=== PATIENT | female | born 1965 | race Caucasian/White ===

== ENCOUNTER 2017-06-25 08:58 | Emergency (ER) | payer OTHER ==
[~2017-06-25] VITALS: Ht 175.3 cm; Wt 74.4 kg
--- NOTE | ~2017-06-25 | EKG ---
[place] [address] [facility] [place] [address] ELECTROCARDIOGRAM REPORT Name: REUM PAT Room #: DEP [facility]#: [id number] Admission: 06/25/17 Attend Phys: Discharge: 06/25/17 Date of : 61 Report #: [id number] THIS REPORT FOR: //name// [facility] ED Test Date: 2017-06-25 Test Time: 09:04:41 Pat Name: ERUM PAT Department: Room: Gender: F System Dispatcher: Antonio WILHELM : 1965 Requested By: Laci Crawford Order Number: [id number] MD: Barak Ornelas Measurements Intervals [place] Rate: 108 P: 66 WA: 160 QRS: 50 QRSD: 127 T: 65 QT: 318 QTc: 426 Interpretive Statements Sinus tachycardia Probable left atrial enlargement IVCD, consider atypical RBBB Artifact in lead(s) II,III,aVR,aVL,aVF No previous ECG available for comparison Electronically Signed On 06-26-2017 9:07:13 CDT by Barak Ornelas [email or web address] <ELECTRONICALLY SIGNED> By: Barak Ornelas MD, [facility] 06/26/17906 3 3 Barak Ornelas MD, [facility] /EPI
[~2017-06-25 08:58] MED LIST: ABILIFY15 MG PO; ADDERALL 30 MG30 MG PO; AMOXICILLIN 50500 M1 PO; CIPRODEX OTIC7.5 ML OTIC; CORTISPORIN OTI10 ML OTIC; INDOMETHACIN 2525 MG PO; LAMICTAL XR200 MG PO; NORCO 5-325 TA1 EACH PO
[2017-06-25 09:38] LABS: BASOPHILS 0.6 % (0.0-2.0); EOSINOPHILS 1.1 % (0.0-3.0); HEMATOCRIT 38.2 % (37.0-47.0); HEMOGLOBIN 13.2 gm/dL (12.0-15.0); LYMPHOCYTES 18.5 % (24.0-44.0); MANUAL DIFF NO; MCHC 34.7 g/dL (28.0-37.0); MCV 95.2 fL (80.0-100.0); MONOCYTES 6.2 % (1.0-8.0); PLATELET COUNT 124 thou/uL (150-400); POLYS 73.6 % (36.0-66.0); RBC 4.01 mil/uL (4.20-5.00); RDW 12.5 % (10.5-14.5); WBC 11.5 thou/uL (4.0-11.0)
[2017-06-25 09:43] LABS: ANION GAP 9 mmol/L (7-16); BUN 17 mg/dL (7-18); CALCIUM 9.5 mg/dL (8.5-10.1); CHLORIDE 104 mmol/L (98-107); CO2 26 mmol/L (21-32); CREATININE 0.8 mg/dL (0.6-1.0); GLUCOSE 98 mg/dL (74-106); POTASSIUM 4.7 mmol/L (3.5-5.1); SODIUM 139 mmol/L (136-145)
[2017-06-25 09:56] LABS: NT-PRO BRAIN NAT PEPTIDE 39 pg/mL (<300); TROPONIN-I < 0.04 ng/mL (<0.04-0.07)
[2017-06-25] MEDS ORDERED: WELLBUTRIN SR150 MG PO (10:01)
[2017-06-25] MEDS ORDERED: NAPROSYN500 MG PO (10:08)
[2017-06-25 12:14] VITALS: BP 112/62
== END 2017-06-25 12:16 | disposition home or self-care (01) ==
LOC: ER 08:58
PROVIDERS: Nurse Practitioner
DX: M94.0 Chondrocostal junction syndrome [Tietze] (principal); F10.99 Alcohol use, unspecified with unspecified alcohol-induced disorder; Z88.8 Allergy status to other drugs, medicaments and biological substances

== ENCOUNTER 2018-12-04 21:26 | Emergency (ER) | payer OTHER ==
[~2018-12-04] VITALS: Ht 175.3 cm; Wt 86.2 kg
[~2018-12-04 21:26] MED LIST changes: +NAPROSYN500 MG PO; +WELLBUTRIN SR150 MG PO
[2018-12-04 22:05] VITALS: BP 105/54
[2018-12-04] MEDS ORDERED: BACTRIM DS TAB1 EACH PO (22:11)
[2018-12-04] MEDS ORDERED: NAPROSYN500 MG PO (22:30)
== END 2018-12-04 22:30 | disposition home or self-care (01) ==
LOC: ER 21:26
DX: L03.115 Cellulitis of right lower limb (principal)

== ENCOUNTER 2018-12-05 17:02 | Inpatient (IN) | payer OTHER ==
[~2018-12-05] VITALS: Ht 175.3 cm; Wt 86.2 kg
[~2018-12-05 17:02] MED LIST changes: +BACTRIM DS TAB1 EACH PO
[2018-12-05 17:04] VITALS: BP 121/60
[2018-12-05 17:43] LABS: ABSOLUTE NEUTROPHILS 9.4 thou/uL (1.4-8.2); BASOPHILS 0.8 % (0.0-2.0); EOSINOPHILS 1.7 % (0.0-3.0); HEMOGLOBIN 13.1 gm/dL (12.0-15.0); LYMPHOCYTES 19.6 % (24.0-44.0); MCHC 34.5 g/dL (28.0-37.0); MCV 92.8 fL (80.0-100.0); MONOCYTES 7.8 % (1.0-8.0); PLATELET COUNT 256 thou/uL (150-400); POLYS 70.1 % (36.0-66.0); RDW 12.7 % (10.5-14.5); WBC 13.4 thou/uL (4.0-11.0)
[2018-12-05 17:49] LABS: CALCIUM 9.2 mg/dL (8.5-10.1); CREATININE 1.1 mg/dL (0.6-1.0); POTASSIUM 3.9 mmol/L (3.5-5.1)
[2018-12-05 17:55] LABS: ALBUMIN 3.7 g/dL (3.4-5.0); TOTAL BILIRUBIN 0.4 mg/dL (<0.1-1.0); TOTAL PROTEIN 7.2 g/dL (6.4-8.2)
[2018-12-05 17:57] LABS: PROTIME 10.3 Seconds (9.3-11.4)
[2018-12-05 20:11] VITALS: BP 99/49
[2018-12-05 20:53] VITALS: BP 92/50
[2018-12-05 21:23] VITALS: BP 92/50
--- NOTE | 2018-12-06 05:01 | NUR ---
PT ARRIVED TO UNIT APPROX 2100 IN STABLE CONDITION, ABLE TO WALK FROM ED CART TO BED. ADMISSION AND ASSESSMENT COMPLETED, CONSENTS SIGNED. PT A&Ox4, BIPOLAR AND ADHD, FLIGHTY THOUGHT PROCESS BUT PLEASANT AND COOPERATIVE, HAD TO ASK QUESTIONS MULTIPLE TIMES BECAUSE SHE KEPT FALLING ASLEEP. TOOK WOUND PHOTO OF CELLULITIS ON RIGHT INNER THIGH, NOTED A HARD KNOT AT CENTER, NOTHING DRAINING. ON IV FLUIDS AND ABX. NO PAIN SINCE ON THE FLOOR. NO OTHER CONCERNS, WILL CONTINUE TO MONITOR.
[2018-12-06 05:14] VITALS: BP 102/47
[2018-12-06 05:41] LABS: HEMATOCRIT 38.9 % (37.0-47.0); HEMOGLOBIN 13.1 gm/dL (12.0-15.0); MCH 31.5 pg (26.0-34.0); MCHC 33.6 g/dL (28.0-37.0); MCV 93.6 fL (80.0-100.0); RBC 4.15 mil/uL (4.20-5.00); RDW 12.4 % (10.5-14.5); WBC 8.2 thou/uL (4.0-11.0)
[2018-12-06 05:55] LABS: CALCIUM 8.5 mg/dL (8.5-10.1); CREATININE 0.9 mg/dL (0.6-1.0); POTASSIUM 4.3 mmol/L (3.5-5.1)
[2018-12-06 10:53] VITALS: BP 98/60
--- NOTE | 2018-12-06 12:46 | NUR ---
ASSESSMENT-PT LIVES AT HOME WITH HER EX-. PT WALKS ON HER OWN AND DOES HER OWN ADLS. PT DRIVES. PT VOICES NO CONCERNS RELATED TO DC. EX- ABLE TO ASSIST AT HOME. FOLLOWING TO ASSIST WITH DC PLANNING.
[2018-12-06 16:00] VITALS: BP 119/75
--- NOTE | 2018-12-06 16:45 | NUR ---
WOUND CONSULT: PT. WAS SEEN TODAY BY DR. CARY AND MYSELF. PT. HAS CELLULTIS TO HER RIGHT INNER THIGH WITH A SMALL ABCESS IN THE CENTER FROM WHAT APPEARS TO HAVE BEEN AN INFECTED HAIR FOLICLE. DR. CARY PREFORMED AN I&D AT THE BEDSIDE TODAY AND PT. TOLERATED PROCEDURE WELL. RECOMMENDATIONS: WOUND CARE TO RIGHT INNER THIGH: GENTLY CLEANSE WITH WOUND CLEANSER OR NORMAL SALINE, PACK WITH IODOFORM GAUZE PACKING, COVER WITH BORDERED FOAM, COMPLETE CARES DAILY AND PRN. PT. AND STAFF NURSE WERE INSTRUCTED ON WOUND CARE.
--- NOTE | 2018-12-06 18:25 | NUR ---
REPORT GIVEN TO SENIOR SUITES NURSE. PT TO MOVE TO ROOM 223 PATIENT W/O PAIN OR RESP DISTRESS. PT HAD ID AND CULTURE SENT. ALL BELONGINGS PACKED AND SENT WITH PATIENT.
[2018-12-06 18:59] VITALS: BP 100/65
--- NOTE | 2018-12-06 19:41 | NUR ---
PATIENT CAME DOWN FROM [facility] AT 1820. REPORTED PAIN, PRN PAIN MED GIVEN. 1900 VANCOMYCIN WAS STARTED. REPORT GIVEN TO NIGHT NURSE.
--- NOTE | 2018-12-06 21:41 | NUR ---
pt presents with a plesant affect,alert and oriented x4 , self ambulatory ,on ra,last reported bm on 12/05/18, reports pain on the right inner thigh and has been utilizing pain meds. personal items within reach.meds compliant.
--- NOTE | 2018-12-07 09:02 | NUR ---
ORDERS RECEIVED FOR EVAL AND TREAT. SPOKE WITH Pt WHO STATES SHE HAS BEEN UP WITHOUT DIFFICULTY. HOPING TO GO HOME TODAY AND HAS NOT TAKEN PAIN MEDS SO SHE CAN DRIVE HOME. DECLINING A FORMAL P.T. EVAL BUT HAS BEEN UP WITHOUT DIFFICULTY FOLLOWING THE I AND D.
--- NOTE | 2018-12-07 15:09 | NUR ---
WOUND FOLLOW UP: PT. WAS SEEN TODAY BY DR. CARY AND MYSELF. PT. DRESSING WAS CHANGED TODAY. DRAINAGE IS SEROSANGIOUS AND CLINICALLY SITE LOOKS BETTER. RECOMMENDATIONS: CONTINUE WITH CURRENT PLAN OF CARE. PT. AND STAFF NURSE WERE INSTRUCTED ON PLAN OF CARE.
[2018-12-07 19:47] VITALS: BP 104/62
--- NOTE | 2018-12-08 03:06 | NUR ---
PATIENT ALERT AND ORIENTED X4. UP ADLIB IN ROOM. C/O OF PAIN AND MEDICATED X1 AT TIME OF THIS NOTE. STATES THAT SHE IS READY TO GO HOME. DRESSING DRY AND INTACT. AM NURSE MOVED IV DUE TO PAIN FROM [facility] IVPB. COOPERATIVE WITH CARE. WILL MONITOR.
[2018-12-08 07:38] VITALS: BP 128/76
[2018-12-08] MEDS ORDERED: ZOFRAN 4 MG ORAL4 MG DISSOLVE (11:04)
[2018-12-08] MEDS ORDERED: PERCOCET PO (11:04)
[2018-12-08] MEDS ORDERED: BACTRIM DS TAB1 EACH PO (11:04)
[2018-12-08 13:42] VITALS: BP 128/76
--- NOTE | 2018-12-10 07:38 | P ---
[facility] [place] [address] PROCEDURE REPORT Name: ERUM PAT Room #: 223-P [facility] IN M.R.#: [id number] Admission: 12/05/18 Attend Phys: Diony Chung MD Discharge: 12/08/18 Date of : 61 Report #: [id number] THIS REPORT FOR: //name// CC: Diony Jones DATE OF SERVICE: 12/06/2018 PREPROCEDURE DIAGNOSIS: Abscess, right medial thigh. POSTPROCEDURE DIAGNOSIS: Abscess, right medial thigh. PROCEDURE PERFORMED: Incision and drainage of abscess, right medial. The patient was seen in her room with the Wound Care team. She was noted to have an abscess. After verbal consent for incision and drainage, the procedure was begun. The area was prepped and draped in usual sterile fashion. A time-out was taken to verify the patient's right side. I never left the bedside and the patient was in agreement with the location. The area was then prepped and draped in usual sterile fashion, anesthetized with 1% lidocaine with 1:100,000 concentration of epinephrine. After adequate anesthesia, an incision was across the area of greatest fluctuance with a #15 bladed scalpel. A moderate amount of semi-solid purulent material was removed and tissue forceps were used to break up any loculations. The wound was then packed with iodoform gauze. The patient tolerated the procedure well. Estimated blood loss was approximately 2 mL. Samples taken for culture and sensitivity. COMPLICATIONS: None. <ELECTRONICALLY SIGNED> By: Fabien Zazueta MD 12/10/18 0738 [id number] Fabien Zazueta MD /nt
--- NOTE | 2018-12-10 07:38 | HC ---
[facility] [place] [address] CONSULTATION Name: ERUM PAT Room #: 223-P [facility] IN M.R.#: [id number] Admission: 12/05/18 Attend Phys: Diony Chung MD Discharge: 12/08/18 Date of : 61 Report #: [id number] THIS REPORT FOR: //name// CC: Diony Jones DATE OF SERVICE: 12/06/2018 CHIEF COMPLAINT: Cellulitis to the right thigh. HISTORY OF PRESENT ILLNESS: This is a 53-year-old female patient who was admitted to the hospital with progressive cellulitis involving the right medial thigh over the last couple of days. She was apparently seen at [facility]. They thought she might have a spider bite and gave her some antibiotics. She came into the hospital here, was diagnosed with cellulitis and admitted. There was some concern of a possible abscess, although an ultrasound has not demonstrated a definitive fluid collection. PAST MEDICAL HISTORY: Positive for history of cellulitis of the right upper extremity, costochondritis. Positive for history of bipolar disorder, attention deficit hyperactivity disorder. No history of coronary artery disease or diabetes. ALLERGIES: INCLUDE RISPERDAL. FAMILY HISTORY: Noncontributory. SOCIAL HISTORY: Positive for smoking 12 cigarettes per day, history for 20 years. No history of drug or alcohol use. MEDICATIONS: Include Adderall, Lamictal, Abilify, Wellbutrin. REVIEW OF SYSTEMS: CONSTITUTIONAL: The patient denies fever, chills or weight loss. NEUROLOGICAL: The patient denies focal weakness, numbness or tingling. EYES: The patient denies visual changes, redness or drainage. ENT: The patient denies earache, nasal drainage or sore throat. CARDIOVASCULAR: The patient denies chest pain, palpitations, diaphoresis. PULMONARY: The patient denies cough or shortness of breath. GASTROINTESTINAL: The patient denies nausea, vomiting or diarrhea or abdominal pain. ORTHOPEDIC: The patient does have pain and swelling of the right medial thigh. Other systems in a 14-point review of systems are negative. PHYSICAL EXAMINATION: VITAL SIGNS: At this time include pulse 97, respiration of 18, blood pressure [facility] [address] [place] [address] CONSULTATION Name: ERUM PAT Room #: 223-P [facility] IN [facility].#: [id number] Admission: 12/05/18 Attend Phys: Diony Chung MD Discharge: 12/08/18 Date of : 61 Report #: [id number] 100/65, temperature 98.7. GENERAL: This is a chronically ill-appearing female patient who appears to be in minimal distress. HEENT: Head is normocephalic. Nose and throat clear. NECK: Supple. LUNGS: Clear. HEART: ____. ABDOMEN: Bowel sounds present. EXTREMITIES: Demonstrate significant redness involving the right medial thigh, there is an area of fluctuance noted. An incision and drainage procedure was performed and please see separate dictation for procedure note and a moderate purulent material was retrieved. Cultures were sent. CLINICAL IMPRESSION: 1. Cellulitis and abscess of the right medial thigh. 2. History of bipolar disorder. RECOMMENDATIONS: At this point in time, we begin packing the wound with iodoform gauze to be changed daily or every other day. She will continue on IV antibiotic therapy. Cultures are pending and have been obtained from the abscess cavity. I appreciate being asked to see her in consultation. <ELECTRONICALLY SIGNED> By: Fabien Zazueta MD 12/10/18 0738 [id number] [id number] Fabine Zazueta MD /nt
== END 2018-12-08 16:36 | disposition home or self-care (01) | DRG 854 ==
LOC: ER 17:02 → EROBS 19:43 → 4E 19:43 → SICU 12-06 18:32
PROVIDERS: Nurse Practitioner Acute Care; Physician Assistant; ADMIT Internal Medicine
PROC: 0J9N0ZZ Drainage of Right Lower Leg Subcutaneous Tissue and Fascia, Open Approach (ICD-10-PCS; principal; 2018-12-06)
DX: A41.9 Sepsis, unspecified organism (principal); L03.115 Cellulitis of right lower limb; L02.415 Cutaneous abscess of right lower limb; F31.9 Bipolar disorder, unspecified; D72.829 Elevated white blood cell count, unspecified; F17.210 Nicotine dependence, cigarettes, uncomplicated; F98.8 Other specified behavioral and emotional disorders with onset usually occurring in childhood and adolescence; E66.9 Obesity, unspecified; Z68.28 Body mass index [BMI] 28.0-28.9, adult; Z71.6 Tobacco abuse counseling; Z28.21 Immunization not carried out because of patient refusal; Z88.8 Allergy status to other drugs, medicaments and biological substances
CPT/HCPCS: 10084; 15002

== ENCOUNTER → 2018-12-17 | Outpatient (CLI) | payer OTHER ==
[~2018-12-17] MED LIST changes: +PERCOCET PO; +ZOFRAN 4 MG ORAL4 MG DISSOLVE
== END ==
LOC: HYPER 12-14 13:24
DX: T81.89XA Other complications of procedures, not elsewhere classified, initial encounter (principal); L84 Corns and callosities; L02.415 Cutaneous abscess of right lower limb; F90.9 Attention-deficit hyperactivity disorder, unspecified type; F31.9 Bipolar disorder, unspecified; F17.200 Nicotine dependence, unspecified, uncomplicated; Y92.89 Other specified places as the place of occurrence of the external cause; Y83.8 Other surgical procedures as the cause of abnormal reaction of the patient, or of later complication, without mention of misadventure at the time of the procedure